=== PATIENT | female | born 1970 | race Caucasian/White ===

== ENCOUNTER → 2019-03-28 | Emergency (ER) | payer OTHER ==
[~2019-03-28] VITALS: Ht 170.2 cm; Wt 90.7 kg
[~2019-03-28] MED LIST: CEFUROXIME500 MG PO; PYRIDIUM DS200 MG PO; TIROSINT100 MCG
== END ==
LOC: ER 20:56
DX: N30.80 Other cystitis without hematuria (principal)